=== PATIENT | male | born 1985 | race Two or more races ===

== ENCOUNTER 2018-02-26 18:42 | Emergency (ER) | payer BC ==
[~2018-02-26] VITALS: Ht 177.8 cm; Wt 70.3 kg
[2018-02-26 18:42] VITALS: BP 131/83
== END 2018-02-26 20:17 | disposition home or self-care (01) ==
LOC: ER 18:44
DX: S61.214A Laceration without foreign body of right ring finger without damage to nail, initial encounter (principal); W01.110A Fall on same level from slipping, tripping and stumbling with subsequent striking against sharp glass, initial encounter; Y93.89 Activity, other specified; Y92.89 Other specified places as the place of occurrence of the external cause; Y99.8 Other external cause status
CPT/HCPCS: 12001; 99283; A4606; Z7610